=== PATIENT | male | born 1980 | race Caucasian/White ===

== ENCOUNTER 2018-08-15 02:02 | Emergency (ER) | payer BC ==
[~2018-08-15] VITALS: Ht 174 cm; Wt 71.8 kg
[2018-08-15 02:06] VITALS: Ht 174 cm; Wt 71.8 kg
[2018-08-15] MEDS ORDERED: LORAZEPAM 1 MG TAB PO ONE (03:00)
[2018-08-15] MEDS ORDERED: LAMO200T2 PO (04:03)
[2018-08-15] MEDS ORDERED: LACO10SO2 PO (04:03)
[2018-08-15] MEDS ORDERED: VERA240T94 PO (04:03)
[2018-08-15] MEDS ORDERED: TRAZ-111 PO (04:03)
[2018-08-15] MEDS ORDERED: TRAZ300T15 PO (04:03)
[2018-08-15] MEDS ORDERED: MAXZ25 PO (04:03)
[2018-08-15] MEDS ORDERED: CLOB2.5O PO (04:03)
[2018-08-15] MEDS ORDERED: OLAN10TA7 PO (04:05)
[2018-08-15] MEDS ORDERED: OLAN5TAB5 PO (04:05)
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
[2018-08-15 04:35] VITALS: BP 119/95; PULSE 99; RESP 15
== END 2018-08-15 04:35 | disposition home or self-care (01) ==
LOC: E/R 02:02
DX: F19.959 Other psychoactive substance use, unspecified with psychoactive substance-induced psychotic disorder, unspecified (principal)
CPT/HCPCS: 80053; 82962; 85025; 99283